=== PATIENT | male | born 1955 | race African-American/Black ===

== ENCOUNTER 2017-03-28 06:13 | Emergency (ER) | payer OTHER ==
[2017-03-28] MEDS ORDERED: Lidocaine 2% PF 5 ML VIAL ONE (06:56)
[2017-03-28] MEDS ORDERED: Adacel (T-DAP) 0.5 ML VIAL ONE (06:57)
[2017-03-28] MEDS ORDERED: Sodium Bicarbonate 2.4 MEQ/5 ML ONE (06:57)
--- NOTE | 2017-03-28 07:41 | RAD ---
TWO VIEWS OF THE RIGHT SMALL DIGIT. PROVIDED CLINICAL HISTORY: Foreign body. FINDINGS: A fishhook is noted overlying the distal aspects of the right small digit. The hooks appear within t he soft tissues of the digit. No osseous involvement is evident. No evidence for fracture. Alignme nt appears anatomic. Joint spaces appear clear. IMPRESSION: [place] embedded within the soft tissues of the right small digit as above. POS: [facility]
[2017-03-28] MEDS ORDERED: Amoxicillin/Potassium Clav 875 MG TAB ONE (08:07)
== END 2017-03-28 08:11 | disposition home or self-care (01) ==
LOC: ERS 06:13
DX: S60.450A Superficial foreign body of right index finger, initial encounter (principal); I10 Essential (primary) hypertension; J44.9 Chronic obstructive pulmonary disease, unspecified; F31.9 Bipolar disorder, unspecified; F17.210 Nicotine dependence, cigarettes, uncomplicated; Z79.899 Other long term (current) drug therapy; W22.8XXA Striking against or struck by other objects, initial encounter
CPT/HCPCS: 90471; 90715; J2001

== ENCOUNTER 2017-04-04 09:08 | Emergency (ER) | payer OTHER ==
[2017-04-04 09:47] LABS: Bilirubin Negative (Negative); Blood, Urine Negative (Negative); Clarity CLEAR (Clear); Glucose, Urine (Dipstick) Negative (Negative); Leukocyte Negative (Negative); Nitrite Negative (Negative); Protein, Urine (Dipstick) Negative (Neg-Trace); Specific Gravity, Urine 1.016 (1.002-1.036)
[2017-04-04 09:56] LABS: #Eosinphils 0.2 thou/uL (0.0-0.7); #Lymphocytes 1.8 thou/uL (1.20-3.40); #Monocytes 0.5 thou/uL (0.11-0.59); #Neutrophils 2.7 thou/uL (1.40-6.50); %Basophils 0.9 % (0.0-1.0); %Eosinophils 4.2 % (0.0-10.0); %Lymphocytes 34.4 % (21.0-51.0); %Monocytes 9.3 % (0.0-10.0); %Neutrophils 51.3 % (42.0-75.0); Hemoglobin 13.2 g/dL (14.0-18.0); Mean Corpuscular HGB CONC 31.9 g/dL (32.0-36.0); Mean Corpuscular Hemoglobin 32.2 pg (27.0-31.0); Mean Platelet Volume 7.6 fL (7.4-10.4); Platelet Count 201 thou/uL (130-400); RBC Distribution Width 12.9 % (11.5-14.5); Red Blood Cell (RBC) Count 4.11 mill/uL (4.70-6.10); White Blood Cell (WBC) Count 5.3 thou/uL (4.8-10.8)
[2017-04-04 10:06] LABS: CKMB 2.3 ng/mL (0-6.6); Troponin I Less than 0.010 ng/mL (< 0.028)
[2017-04-04 10:12] LABS: ALT (SGPT) 21 U/L (8-55); AST (SGOT) 24 U/L (5-34); Albumin 3.9 g/dL (3.4-4.8); Alkaline Phosphatase 72 U/L (40-150); Anion Gap 11 mmol/L (10-20); BUN (Urea Nitrogen) 15 mg/dL (8.4-25.7); Bilirubin, Total 0.3 mg/dL (0.2-1.2); CK (CPK) 149 U/L (30-200); Calc. Creatinine Clearance 0 mL/min (70-130); Calcium 9.4 mg/dL (7.8-10.44); Carbon Dioxide 25 mmol/L (23-31); Chloride 102 mmol/L (98-107); Estimated GFR-MDRD Greater than 90; Globulin 3.8 g/dL (2.4-3.5); Glucose 100 mg/dL (80-115); Lipase 40 U/L (8-78); Protein, Total 7.7 g/dL (5.8-8.1); Sodium 134 mmol/L (136-145)
--- NOTE | 2017-04-04 11:57 | CT ---
CT ABDOMEM AND PELVIS WITH CONTRAST: Date: 04/04/17 HISTORY: Abdominal pain. COMPARISON: None. FINDINGS: Lung bases are clear. No pericardial effusion. Prior cholecystectomy. Infrarenal abdominal aortic ane urysm measuring 4.0 x 3.8 cm for a craniocaudal length of 4.4 cm. Moderate vascular calcifications. T here is narrowing of the left internal iliac artery due to thrombus and eccentric plaque. There is a too small to characterize hypodensity interpolar right kidney posterior cortex. No hydrone phrosis. Liver, spleen, and pancreas are unremarkable. No dilated loops of large or small bowel. No free intraperitoneal gas or fluid. No adenopathy. Pancreas is visualized and is normal. Moderate facet arthrosis L2-S1. Mild degenerative disease of the SI joints. Narrowing of pubic symphy sis. IMPRESSION: 1. Infrarenal abdominal aorta aneurysm measuring 4.0 x 3.8 cm for a craniocaudal length of 4.4 cm. 2. No acute inflammatory process of abdomen or pelvis. 3. Prior cholecystectomy. 4. Normal appendix. POS: [facility]
== END 2017-04-04 12:26 | disposition home or self-care (01) ==
LOC: ERS 09:08
DX: I71.4 Abdominal aortic aneurysm, without rupture (principal); R10.13 Epigastric pain; I10 Essential (primary) hypertension; J44.9 Chronic obstructive pulmonary disease, unspecified; F17.210 Nicotine dependence, cigarettes, uncomplicated; Z79.899 Other long term (current) drug therapy
CPT/HCPCS: 36415; 74177; 80053; 81003; 82553; 83690; 84484; 85025; 93005; 94760

== ENCOUNTER 2017-09-25 09:18 | Emergency (ER) | payer OTHER | END 2017-09-25 10:00 | disposition home or self-care (01) | LOC: ERS 09:18 | DX: I10 Essential (primary) hypertension (principal); R60.0 Localized edema; J44.9 Chronic obstructive pulmonary disease, unspecified; F31.9 Bipolar disorder, unspecified; F17.210 Nicotine dependence, cigarettes, uncomplicated; Z79.899 Other long term (current) drug therapy | CPT/HCPCS: 99283 ==

== ENCOUNTER 2017-10-09 15:19 | Emergency (ER) | payer OTHER ==
[2017-10-09 15:52] LABS: #Basophils 0.1 thou/uL (0.0-0.2); #Eosinphils 0.1 thou/uL (0.0-0.7); #Lymphocytes 2.1 thou/uL (1.20-3.40); #Monocytes 0.4 thou/uL (0.11-0.59); #Neutrophils 2.7 thou/uL (1.40-6.50); %Basophils 1.4 % (0.0-1.0); %Eosinophils 2.7 % (0.0-10.0); %Lymphocytes 39.3 % (21.0-51.0); %Monocytes 7.1 % (0.0-10.0); %Neutrophils 49.6 % (42.0-75.0); Hemoglobin 13.3 g/dL (14.0-18.0); Mean Corpuscular HGB CONC 34.1 g/dL (32.0-36.0); Mean Corpuscular Hemoglobin 33.6 pg (27.0-31.0); Mean Corpuscular Volume 98.6 fL (78.0-98.0); Mean Platelet Volume 7.7 fL (7.4-10.4); Platelet Count 222 thou/uL (130-400); RBC Distribution Width 13.4 % (11.5-14.5); Red Blood Cell (RBC) Count 3.96 mill/uL (4.70-6.10); White Blood Cell (WBC) Count 5.5 thou/uL (4.8-10.8)
[2017-10-09 16:15] LABS: ALT (SGPT) 20 U/L (8-55); AST (SGOT) 25 U/L (5-34); Albumin 3.8 g/dL (3.4-4.8); Alkaline Phosphatase 75 U/L (40-150); Anion Gap 12 mmol/L (10-20); BUN (Urea Nitrogen) 17 mg/dL (8.4-25.7); Bilirubin, Total 0.4 mg/dL (0.2-1.2); Calc. Creatinine Clearance 0 mL/min (70-130); Calcium 9.2 mg/dL (7.8-10.44); Carbon Dioxide 26 mmol/L (23-31); Chloride 103 mmol/L (98-107); Estimated GFR-MDRD Greater than 90; Globulin 3.7 g/dL (2.4-3.5); Glucose 101 mg/dL (80-115); Potassium 4.3 mmol/L (3.5-5.1); Protein, Total 7.5 g/dL (5.8-8.1); Sodium 137 mmol/L (136-145)
[2017-10-09 16:19] LABS: CKMB 1.7 ng/mL (0-6.6); Troponin I Less than 0.010 ng/mL (< 0.028)
--- NOTE | 2017-10-09 16:42 | RAD ---
CHEST ONE VIEW: 10/09/17 HISTORY: Altered mental status. COMPARISON: Chest radiograph 05/23/16. FINDINGS: The exam is limited due to lordotic technique. No definite focal air space consolidation, pneumothora x or effusion. There is lucency along the left coracoid screw. Advanced degenerative disease of the l eft shoulder joint. IMPRESSION: No definite acute intrathoracic abnormality given the limited lordotic technique. POS: [facility]
--- NOTE | 2017-10-09 18:39 | CT ---
HEAD CT WITHOUT CONTRAST: 10/09/17 HISTORY: Patient had tooth pulled at dentist today. Dizziness and weakness. COMPARISON: 10/08/16. FINDINGS: No parenchymal hemorrhage. No extra-axial hematoma. No midline shift. Basilar cisterns are patent. Ag e appropriate atrophy. Cortical enriquez-white matter differentiation is preserved. Ventricles and sulci are patent and symmetric. Calvarium is intact. Adequate aeration of the sinuses and mastoid air cells. IMPRESSION: No acute intracranial process. POS: [facility]
[2017-10-09 18:51] LABS: Bilirubin Negative (Negative); Blood, Urine Negative (Negative); Clarity CLEAR (Clear); Glucose, Urine (Dipstick) Negative (Negative); Leukocyte Negative (Negative); Nitrite Negative (Negative); Protein, Urine (Dipstick) Negative (Neg-Trace); Specific Gravity, Urine 1.025 (1.002-1.036)
[2017-10-09 20:06] LABS: Troponin I Less than 0.010 ng/mL (< 0.028)
[2017-10-10] MEDS ORDERED: Sodium Chloride 0.9% 1,000 ML IV SCH (05:45)
--- NOTE | 2017-10-12 11:49 | EKG ---
Test Reason : DIZZINESS Blood Pressure : / mmHG Vent. Rate : 066 BPM Atrial Rate : 066 BPM P-R Int : 202 ms QRS Dur : 082 ms QT Int : 392 ms P-R-T Axes : 074 005 059 degrees QTc Int : 410 ms Normal sinus rhythm Anteroseptal infarct , age undetermined Abnormal ECG Confirmed by PRACHI ORDOÑEZ DO ([id number]), fan mail editor V[place] FRANKLIN ([id number]) on 10/12/2017 11:49:12 AM Referred By: Confirmed By:PRACHI ORDOÑEZ DO
== END 2017-10-09 20:58 | disposition left against medical advice (07) ==
LOC: ERS 15:19
DX: I95.9 Hypotension, unspecified (principal); J44.9 Chronic obstructive pulmonary disease, unspecified; F17.210 Nicotine dependence, cigarettes, uncomplicated; Z79.899 Other long term (current) drug therapy
CPT/HCPCS: 36415; 70450; 71045; 80053; 81003; 82553; 83880; 84484; 85025; 93005; 96360; 96361

== ENCOUNTER 2018-02-17 08:18 | Outpatient (CLI) | payer MEDICAID ==
--- NOTE | 2018-02-17 10:08 | RAD ---
THREE VIEWS RIGHT FOOT: Date: 02-17-18 Comparison: None. History: Dorsal pain, cellulitis. FINDINGS: There is a metatarsus primus varis/hallux valgus deformity. There is mild to moderate degenerative ch sabino of the first metatarsal phalangeal joint with joint space narrowing, subchondral sclerosis and o steophyte formation. No radiopaque foreign body or subcutaneous gas. No displaced fracture or disloca tion. IMPRESSION: Degenerative changes as detailed above. POS: [facility]
== END 2018-02-17 08:19 | disposition home or self-care (01) ==
LOC: BICRAD 08:18
DX: L03.115 Cellulitis of right lower limb (principal); M19.071 Primary osteoarthritis, right ankle and foot

== ENCOUNTER 2019-01-28 08:21 | Outpatient (CLI) | payer MEDICARE, MEDICAID ==
--- NOTE | 2019-01-28 11:22 | ULT ---
HEPATIC ULTRASOUND WITH STARKEY SCALE AND COLOR FLOW AND SPECTRAL DOPPLER IMAGING: Date: 01/28/19 HISTORY: Chronic hepatitis. FINDINGS: The patient is post cholecystectomy. The liver demonstrates homogeneous echotexture without focal mas s or intrahepatic ductal dilatation. The liver is enlarged, measuring 20 cm in length. The spleen is obscured by bowel gas. The common duct measures 4.0 mm in diameter. The pancreas appears normal. No f ree fluid is seen. The splenic vein and artery are not visualized, along with the spleen. The hepatic veins and arteries appear normal. No free fluid is seen in the right upper quadrant. There is a 4.1 x 4.8 x 4.4 cm aneurysm of the distal abdominal aorta. IMPRESSION: 1. Nonvisualization of the spleen and splenic vasculature. 2. Hepatomegaly. 3. Status post cholecystectomy. 4. Abdominal aortic aneurysm measuring 4.1 x 4.8 x 4.4 cm. POS: [facility]
== END 2019-01-28 08:22 | disposition home or self-care (01) ==
LOC: BICULT 08:21
PROVIDERS: ATTEND Internal Medicine Gastroenterology
DX: B18.2 Chronic viral hepatitis C (principal); K59.00 Constipation, unspecified; I71.4 Abdominal aortic aneurysm, without rupture; R16.0 Hepatomegaly, not elsewhere classified; Z90.49 Acquired absence of other specified parts of digestive tract
CPT/HCPCS: 76705

== ENCOUNTER 2019-02-22 13:05 | Emergency (ER) | payer MEDICARE, OTHER ==
[~2019-02-22 13:05] MED LIST: Iopamidol-370 76% 500 ML 1 ML ONE
[2019-02-22 14:29] LABS: #Basophils 0.1 thou/uL (0.0-0.2); #Eosinphils 0.2 thou/uL (0.0-0.7); #Lymphocytes 2.1 thou/uL (1.20-3.40); #Monocytes 0.4 thou/uL (0.11-0.59); #Neutrophils 3.6 thou/uL (1.40-6.50); %Basophils 1.5 % (0.0-1.0); %Eosinophils 2.7 % (0.0-10.0); %Lymphocytes 32.7 % (21.0-51.0); %Monocytes 6.8 % (0.0-10.0); %Neutrophils 56.2 % (42.0-75.0); Hemoglobin 14.6 g/dL (14.0-18.0); Mean Corpuscular HGB CONC 33.4 g/dL (32.0-36.0); Mean Corpuscular Hemoglobin 32.4 pg (27.0-31.0); Mean Corpuscular Volume 96.9 fL (78.0-98.0); Mean Platelet Volume 7.8 fL (7.4-10.4); Platelet Count 197 thou/uL (130-400); White Blood Cell (WBC) Count 6.4 thou/uL (4.8-10.8)
[2019-02-22 14:49] LABS: ALT (SGPT) 10 U/L (8-55); AST (SGOT) 14 U/L (5-34); Albumin 4.5 g/dL (3.4-4.8); Alkaline Phosphatase 95 U/L (40-110); Anion Gap 12 mmol/L (10-20); BUN (Urea Nitrogen) 15 mg/dL (8.4-25.7); Bilirubin, Total 0.3 mg/dL (0.2-1.2); Calc. Creatinine Clearance 0 mL/min (70-130); Calcium 9.9 mg/dL (7.8-10.44); Carbon Dioxide 27 mmol/L (23-31); Chloride 105 mmol/L (98-107); Estimated GFR-MDRD Greater than 90; Globulin 4.2 g/dL (2.4-3.5); Glucose 101 mg/dL (80-115); Protein, Total 8.7 g/dL (5.8-8.1); Sodium 140 mmol/L (136-145)
[2019-02-22 15:31] LABS: Bilirubin Negative (Negative); Blood, Urine 3+ (Negative); Clarity Extra Turbid (Clear); Glucose, Urine (Dipstick) Normal (Negative); Leukocyte 25 Leu/uL (Negative); Nitrite Negative (Negative); Protein, Urine (Dipstick) 50 mg/dL (Neg-Trace); RBC/HPF Greater than 50 HPF (0-3); Squamous Epithelial None Seen HPF (0-3); Urobilinogen Normal mg/dL (Less than 2)
[2019-02-22 15:33] LABS: Bacteria/HPF 2+ HPF (None Seen)
--- NOTE | 2019-02-22 15:37 | CT ---
CT Abdomen Pelvis W Con: 02/22/2019 2:18 PM CLINICAL INFORMATION: Back pain and abdominal pain. Hematuria. Known abdominal aortic aneurysm. COMPARISON: 04/04/2017 TECHNIQUE: Multiple contiguous axial images were obtained and a CT of the abdomen and pelvis with IV contrast. C oronal and sagittal reformats were performed. FINDINGS: Lower Chest: within normal limits. Abdomen: Liver: within normal limits. Bile Ducts: Normal caliber. Gallbladder: Removed Pancreas: within normal limits. Spleen: within normal limits. Adrenals: within normal limits. Kidneys: within normal limits. Pelvis: Reproductive Organs: No pelvic masses. Ureters: within normal limits. Bladder: There is a 3.1 cm mass in the left posterior lateral urinary bladder. Peritoneum: No ascites or free air, no fluid collection. Bowel: Normal caliber. Normal appendix. Mesentery and Retroperitoneum: No enlarged mesenteric or retroperitoneal lymph nodes. Vessels: There is an abdominal aortic aneurysm measuring 4.6 cm in greatest diameter. Abdominal Wall: within normal limits. Bones: Within normal limits IMPRESSION: 1. Urinary bladder mass. Recommend visualization to exclude a bladder tumor. 2. Abdominal aortic aneurysm
== END 2019-02-22 16:45 | disposition home or self-care (01) ==
LOC: ERS 13:05
DX: N32.9 Bladder disorder, unspecified (principal); R31.9 Hematuria, unspecified; I10 Essential (primary) hypertension; M19.90 Unspecified osteoarthritis, unspecified site; J44.9 Chronic obstructive pulmonary disease, unspecified; F31.9 Bipolar disorder, unspecified; F17.210 Nicotine dependence, cigarettes, uncomplicated; Z79.899 Other long term (current) drug therapy; Z79.891 Long term (current) use of opiate analgesic
CPT/HCPCS: 74177; 80053; 81003; 81015; 85025; 93005; Q9967

== ENCOUNTER 2019-05-05 09:12 | Emergency (ER) | payer MEDICARE, OTHER ==
[2019-05-05] MEDS ORDERED: HYDROcodone/Acetaminophen 10/325 mg Tablet ONE (10:31)
[2019-05-05 11:01] LABS: Bacteria/HPF None Seen HPF (None Seen); Bilirubin Negative (Negative); Blood, Urine Trace (Negative); Clarity Clear (Clear); Glucose, Urine (Dipstick) Normal (Negative); Leukocyte Negative Leu/uL (Negative); Nitrite Negative (Negative); Protein, Urine (Dipstick) Negative (Neg-Trace); RBC/HPF 0-3 HPF (0-3); Squamous Epithelial None Seen HPF (0-3); Urobilinogen Normal mg/dL (Less than 2); WBC/HPF 0-3 HPF (0-3)
--- NOTE | 2019-05-05 12:28 | RAD ---
RIGHT SHOULDER 3 VIEWS: Date: 05/05/2019 HISTORY: Fall on Saturday with shoulder pain. FINDINGS: There is some minimal arthrosis of the AC and glenohumeral joints. There are no signs of fracture or dislocation. IMPRESSION: No evidence of fracture. POS: [facility]
--- NOTE | 2019-05-05 12:31 | RAD ---
RIGHT KNEE 4 VIEWS: Date: 05/05/2019 HISTORY: Knee pain. Status post fall. FINDINGS: There are marked arthritic changes of the knee. Prominent degenerative changes of the patellofemoral and medial compartment. Small joint effusion. No fractures. Vascular calcifications are noted. IMPRESSION: No acute injury. Marked arthritic changes of the knee. POS: [facility]
== END 2019-05-05 12:22 | disposition home or self-care (01) ==
LOC: ERS 09:12
DX: M25.461 Effusion, right knee (principal); M25.561 Pain in right knee; M25.511 Pain in right shoulder; J44.9 Chronic obstructive pulmonary disease, unspecified; F31.9 Bipolar disorder, unspecified; I71.4 Abdominal aortic aneurysm, without rupture; M19.90 Unspecified osteoarthritis, unspecified site; I10 Essential (primary) hypertension; F17.210 Nicotine dependence, cigarettes, uncomplicated; Z79.899 Other long term (current) drug therapy
CPT/HCPCS: 81003; 81015

== ENCOUNTER 2019-08-13 10:07 | Emergency (ER) | payer MEDICARE, OTHER ==
[2019-08-13] MEDS ORDERED: Acetaminophen 500 MG TAB ONE (11:14)
--- NOTE | 2019-08-13 13:34 | RAD ---
RIGHT SHOULDER 3 VIEWS: HISTORY: Right shoulder pain. FINDINGS: Comparison is made with the exam of 05/05/2019. Arthritic changes in the acromioclavicular and glenohumeral joints are again seen. No acute fracture , dislocation, or bony destruction is seen. IMPRESSION: Stable exam. No acute process. POS: [facility]
== END 2019-08-13 11:32 | disposition home or self-care (01) ==
LOC: ERS 10:07
DX: M25.511 Pain in right shoulder (principal); G89.29 Other chronic pain; I71.4 Abdominal aortic aneurysm, without rupture; M19.90 Unspecified osteoarthritis, unspecified site; I10 Essential (primary) hypertension; J44.9 Chronic obstructive pulmonary disease, unspecified; F31.9 Bipolar disorder, unspecified; F17.210 Nicotine dependence, cigarettes, uncomplicated; Z79.899 Other long term (current) drug therapy

== ENCOUNTER 2019-09-24 09:18 | Outpatient (CLI) | payer MEDICARE, MEDICAID ==
--- NOTE | 2019-09-24 12:11 | MRI ---
MRI OF LEFT SHOULDER PERFORMED WITHOUT CONTRAST ENHANCEMENT: Date: 09/24/2019 HISTORY: Left shoulder pain. FINDINGS: Artifact related to metal screw within the glenoid significantly degrades image quality. There is some mild arthrosis of the AC joint. Acromion is slightly laterally downsloping with a small anterior hook and impingement on the superior border of the supraspinatus tendon associated with thi s. The supra and infraspinatus tendons are somewhat difficult to visualize due to artifact in this re gion. Near the junction of the supra and infraspinatus tendons, there is some increased signal change which is not quite true fluid density. There is no fluid in the subacromial/subdeltoid recess. The artifact related to the screw makes evaluation of the subscapularis tendon extremely difficult. I see some of the inferior more fibers of the subscapularis tendon. The superior portions of the subsc apularis muscle appear to be severely atrophied. It is difficult to identify the superior half of the tendon. The biceps tendon does appear to be within normal position within the bicipital groove. Severe arthritic changes of the glenohumeral joint space are seen. There is subchondral cystic change and essentially complete articular cartilage loss of the humeral head, still maintaining a relativel y normal spherical shape. IMPRESSION: 1. Metallic artifact and motion artifact significantly degrade detail of this examination. There is an area of increased signal change at the greater tuberosity attachment of the conjoined portion of t he supra and infraspinatus tendons. This shows an area of increased signal change which is probably r elated to a partial and scar and granulation tissue forming in this region. This only measures 5-6 mm in width. The supraspinatus tendon is thin, but intact, and a majority of the infraspinatus tendon a lso appears intact. 2. Severe atrophy of the superior half of the subscapularis muscle. It is difficult to definitely id entify the subscapularis tendon, particularly the superior portion; however, the biceps tendon is in normal position within the bicipital groove. 3. Severe arthritic changes of the glenohumeral joint space. Screw is present through the glenoid wh ich causes considerable scan artifact. POS: [facility]
--- NOTE | 2019-09-24 12:58 | MRI ---
MRI RIGHT SHOULDER PERFORMED WITHOUT CONTRAST ENHANCEMENT: Date: 09/24/2019 HISTORY: Right shoulder pain. FINDINGS: There is mild arthrosis of the AC joint. At the level of the junction of the supra and infraspinatus tendon, approximately 15 mm proximal to i ts attachment on the greater tuberosity, is an area of high grade undersurface tear, with only a few thin outer bursal fibers still remaining in this area. There is marked tendinosis along the undersurf annabelle of the more anterior aspect of the supraspinatus tendon. This is probably a combination of tendin osis and granulation tissue with scar related to chronic tear. The subscapularis muscle and tendon are intact. There are tendinosis changes of the superior fibers o f the subscapularis tendon. Biceps tendon is in normal position within the bicipital groove. There ar e some tenosynovitis changes, and there is evidence of articular body in the lower portion of the bic ipital groove. Also, there is an articular body seen in the axillary pouch region. There is some obliteration to the subcoracoid fat and some edema change associated with the axillary pouch region. Changes would suggest a capsulitis. There are marked arthritic changes of the glenohumeral joint space, and chronic appearing degenerativ e type tear of the posterior labrum with evidence for chronic appearing chondrolabral separation. No significant rotator cuff muscle atrophy. IMPRESSION: 1. High grade undersurface tear at the junction of the supra and infraspinatus tendons. This is most pronounced approximately 14-15 mm from the attachment on the greater tuberosity. There is fluid in t he subacromial/subdeltoid recess and this probably indicates that there is a full thickness component to this tear. Also, increased signal change in the undersurface of the supraspinatus tendon is proba lulu a combination of tendinosis and scar granulation tissue in this region. 2. Marked arthritic changes of the glenohumeral joint space with evidence of articular bodies as dis cussed above. POS: [facility]
== END 2019-09-24 09:19 | disposition home or self-care (01) ==
LOC: BICMRI 09:18 → MRI 09:19
PROVIDERS: ATTEND Orthopaedic Surgery Sports Medicine
DX: M75.121 Complete rotator cuff tear or rupture of right shoulder, not specified as traumatic (principal); M75.122 Complete rotator cuff tear or rupture of left shoulder, not specified as traumatic; M19.011 Primary osteoarthritis, right shoulder; M19.012 Primary osteoarthritis, left shoulder; R93.7 Abnormal findings on diagnostic imaging of other parts of musculoskeletal system; M62.512 Muscle wasting and atrophy, not elsewhere classified, left shoulder

== ENCOUNTER 2022-02-02 08:21 | Emergency (ER) | payer OTHER ==
[2022-02-02] MEDS ORDERED: Morphine 4 MG/ML VIAL ONE (09:00)
[2022-02-02 09:50] LABS: #Eosinphils 0.3 thou/uL (0.0-0.7); #Monocytes 0.3 thou/uL (0.11-0.59); #Neutrophils 4.8 thou/uL (1.40-6.50); %Basophils 0.2 % (0.0-1.0); %Eosinophils 5.2 % (0.0-10.0); %Lymphocytes 15.1 % (21.0-51.0); %Monocytes 4.2 % (0.0-10.0); %Neutrophils 75.2 % (42.0-75.0); Hemoglobin 13.5 g/dL (14.0-18.0); Mean Corpuscular HGB CONC 32.7 g/dL (32.0-36.0); Mean Corpuscular Hemoglobin 32.3 pg (27.0-31.0); Mean Corpuscular Volume 98.6 fl (78.0-98.0); Mean Platelet Volume 7.9 fL (7.4-10.4); Platelet Count 192 10x3/uL (130-400); Red Blood Cell (RBC) Count 4.17 mill/uL (4.70-6.10); White Blood Cell (WBC) Count 6.4 10x3/uL (4.8-10.8)
[2022-02-02 10:15] LABS: ALT (SGPT) 9 U/L (8-55); AST (SGOT) 10 U/L (5-34); Alkaline Phosphatase 77 U/L (40-110); Anion Gap 12 mmol/L (10-20); BUN (Urea Nitrogen) 12 mg/dL (8.4-25.7); Bilirubin, Total 0.7 mg/dL (0.2-1.2); Calc. Creatinine Clearance 0 mL/min (70-130); Calcium 9.5 mg/dL (7.8-10.44); Carbon Dioxide 30 mmol/L (23-31); Chloride 99 mmol/L (98-107); Estimated GFR 90; Globulin 4.1 g/dL (2.4-3.5); Glucose 99 mg/dL (80-115); Potassium 3.2 mmol/L (3.5-5.1); Protein, Total 8.1 g/dL (5.8-8.1); Sodium 138 mmol/L (136-145)
[2022-02-02 11:25] LABS: Bilirubin Negative (Negative); Blood, Urine 3+ (Negative); Clarity Clear (Clear); Glucose, Urine (Dipstick) Normal (Negative); Ketone, Urine Negative (Negative); Leukocyte 75 Leu/uL (Negative); Nitrite Negative (Negative); Protein, Urine (Dipstick) 30 mg/dL (Neg-Trace); RBC/HPF Greater than 50 HPF (0-3); Specific Gravity, Urine 1.018 (1.002-1.036); Squamous Epithelial 0-3 HPF (0-3); Urobilinogen Normal mg/dL (Less than 2); pH, Urine 6.5 (5.0-9.0)
[2022-02-02] MEDS ORDERED: Iopamidol-370 76% 500 ML 1 ML ONE (11:25)
[2022-02-02 11:26] LABS: Bacteria/HPF Rare-Few HPF (None Seen)
[2022-02-02] MEDS ORDERED: HYDROcodone/Acetaminophen 5/325 mg Tablet ONE (14:33)
== END 2022-02-02 14:20 | disposition home or self-care (01) ==
LOC: ERS 08:21
DX: G89.18 Other acute postprocedural pain (principal); I10 Essential (primary) hypertension; F17.210 Nicotine dependence, cigarettes, uncomplicated; Z79.899 Other long term (current) drug therapy
CPT/HCPCS: 74177; 80053; 81003; 81015; 85025; 87086; 96374; J2270; Q9967